=== PATIENT | male | born 1995 | race Hispanic/Latino ===

== ENCOUNTER 2016-12-05 23:38 | Emergency (ER) | payer SELFPAY ==
[~2016-12-05] VITALS: Ht 182.9 cm; Wt 91.0 kg
[~2016-12-05 23:38] MED LIST: DEPAKOTE ER500 MG PO; DEPAKOTE500 MG PO; DIVALPROEX SOD500 MG PO; HALDOL5 MG PO; LITHIUM CARBON300 M2 PO; QUETIAPINE FUM300 MG PO; SEROQUEL300 MG PO
[2016-12-06 00:01] VITALS: BP 144/94
== END 2016-12-06 00:45 | disposition left against medical advice (07) ==
LOC: EME 23:38
DX: R11.2 Nausea with vomiting, unspecified (principal); F19.10 Other psychoactive substance abuse, uncomplicated; F31.9 Bipolar disorder, unspecified; F17.200 Nicotine dependence, unspecified, uncomplicated
CPT/HCPCS: 99281; 99283

== ENCOUNTER 2017-01-01 17:09 | Emergency (ER) | payer SELFPAY ==
[~2017-01-01] VITALS: Ht 182.9 cm; Wt 94.0 kg
[2017-01-01] MEDS ORDERED: REGLAN10 MG PO (18:05)
[2017-01-01 18:16] VITALS: BP 128/83
== END 2017-01-01 18:21 | disposition home or self-care (01) ==
LOC: EME 17:09
DX: R11.2 Nausea with vomiting, unspecified (principal); F17.200 Nicotine dependence, unspecified, uncomplicated
CPT/HCPCS: 99281; 99284

== ENCOUNTER 2017-01-05 21:16 | Inpatient (IN) | payer SELFPAY ==
[~2017-01-05] VITALS: Ht 182.9 cm; Wt 92.4 kg
[~2017-01-05 21:16] MED LIST changes: +REGLAN10 MG PO
[2017-01-05 21:44] LABS: HEMATOCRIT 41.8 % (38.0-50.0); MCH 29.7 PG (29.0-34.0); MCHC 34.2 G/DL (30.0-36.0); MCV 86.9 FL (86-99); MEAN PLAT.VOLUME 10.5 uM^3 (9.0-12.4); NRBC (%) 0.2 /100 WBC (0-0); PLATELET COUNT 277 K/uL (156-360); RBC DIS.WIDTH-CV 12.5 % (11.8-14.6); RBC DIS.WIDTH-SD 39.9 % (39-53); RED BLOOD COUNT 4.81 M/uL (4.00-5.50); WHITE BLOOD COUNT 10.2 K/uL (4.1-10.2)
[2017-01-05 21:54] LABS: CHLORIDE 106 mEq/L (99-109)
[2017-01-05 21:55] LABS: SODIUM 139 mEq/L (136-147)
[2017-01-05 21:57] LABS: GLUCOSE 79 mg/dL (70-99)
[2017-01-05 21:58] LABS: ANION GAP 10 MEQ/L (2-14)
[2017-01-05 21:59] LABS: TOTAL BILIRUBIN 0.4 mg/dL (0.0-1.0)
[2017-01-05 22:00] LABS: SERUM ETHYL ALCOHOL < 10 mg/dL
[2017-01-05 22:01] LABS: ALKALINE PHOSPHATASE 74 IU/L (3-129); GFR ESTIMATE (CALCULATED) > 59 mL/min/
[2017-01-05 22:03] LABS: UREA NITROGEN (BUN) 14 mg/dL (9-23)
[2017-01-05 22:04] LABS: SALICYLATE < 5.0 MG/DL (15-30)
[2017-01-06 01:24] VITALS: BP 127/85
[2017-01-06 16:23] VITALS: BP 141/76
[2017-01-07 15:30] VITALS: BP 132/73
[2017-01-08 08:02] VITALS: BP 104/53
[2017-01-08 15:19] VITALS: BP 113/77
[2017-01-09 07:49] VITALS: BP 94/50
[2017-01-09 15:34] VITALS: BP 126/79
[2017-01-10 07:57] VITALS: BP 108/67
[2017-01-10] MEDS ORDERED: ABILIFY MAINTE400 MG (12:16)
[2017-01-10] MEDS ORDERED: DEPAKOTE500 MG PO ×2 (12:17→12:21)
[2017-01-10] MEDS ORDERED: QUETIAPINE FUM200 MG PO (12:21)
== END 2017-01-10 14:25 | disposition home or self-care (01) | DRG 885 ==
LOC: EME → EDBD 21:16 → EME 21:16 → 1WEST 22:15 → EDOF 22:15 → 1WEST 01-06 01:19
PROVIDERS: Emergency Medicine
DX: F31.60 Bipolar disorder, current episode mixed, unspecified (principal); R45.851 Suicidal ideations; Z91.19 Patient's noncompliance with other medical treatment and regimen; F12.10 Cannabis abuse, uncomplicated; F17.200 Nicotine dependence, unspecified, uncomplicated; R13.10 Dysphagia, unspecified; Z79.899 Other long term (current) drug therapy; F22 Delusional disorders
CPT/HCPCS: 80053; 80164; 80178; 81003; 85027; 90837; 97150 GO; 97166 GO; 99281; 99284; G0480

== ENCOUNTER 2017-02-12 00:09 | Inpatient (IN) | payer OTHER ==
[~2017-02-12] VITALS: Ht 182.9 cm; Wt 92.2 kg
[~2017-02-12 00:09] MED LIST changes: +ABILIFY MAINTE400 MG; +QUETIAPINE FUM200 MG PO
[2017-02-12 00:43] LABS: HEMATOCRIT 37.6 % (38.0-50.0); MCH 29.6 PG (29.0-34.0); MCHC 34.8 G/DL (30.0-36.0); MCV 85.1 FL (86-99); MEAN PLAT.VOLUME 11.1 uM^3 (9.0-12.4); PLATELET COUNT 203 K/uL (156-360); RBC DIS.WIDTH-CV 12.4 % (11.8-14.6); RBC DIS.WIDTH-SD 38.5 % (39-53); RED BLOOD COUNT 4.42 M/uL (4.00-5.50); WHITE BLOOD COUNT 9.4 K/uL (4.1-10.2)
[2017-02-12 00:55] LABS: CHLORIDE 104 mEq/L (99-109); POTASSIUM 3.6 mEq/L (3.7-5.4); SODIUM 139 mEq/L (136-147)
[2017-02-12 00:57] LABS: GLUCOSE 120 mg/dL (70-99)
[2017-02-12 00:58] LABS: ANION GAP 16 MEQ/L (2-14)
[2017-02-12 01:00] LABS: SERUM ETHYL ALCOHOL < 10 mg/dL
[2017-02-12 01:01] LABS: GFR ESTIMATE (CALCULATED) > 59 mL/min/
[2017-02-12 01:02] LABS: UREA NITROGEN (BUN) 14 mg/dL (9-23)
[2017-02-12 01:29] LABS: ADD MEDTOX COMMENT Y; AMPHETAMINE NEGATIVE (500 ng/mL); BARBITURATES NEGATIVE (200 ng/mL); BENZODIAZEPINES NEGATIVE (150 ng/mL); COCAINE NEGATIVE (150 ng/mL); INTERNAL CONTROLS VALID? YES; METHADONE NEGATIVE (200 ng/mL); METHAMPHETAMINE NEGATIVE (500 ng/mL); OPIATES (MORPHINE) NEGATIVE (100 ng/mL); OXYCODONE NEGATIVE (100 ng/mL); PHENCYCLIDINE NEGATIVE (25 ng/mL); PROPOXYPHENE NEGATIVE (300 ng/mL); THC CANNABINOIDS PRESUMPTIVE POSITIVE (50 ng/mL); TRICYCLIC ANTIDEPRESSANTS NEGATIVE (300 ng/mL)
[2017-02-12 10:15] VITALS: BP 114/75
[2017-02-12 16:36] VITALS: BP 118/65
[2017-02-13 08:01] VITALS: BP 108/56
[2017-02-13 16:02] VITALS: BP 114/60
[2017-02-14 07:46] VITALS: BP 118/71
[2017-02-14 15:28] VITALS: BP 112/58
[2017-02-15 07:52] VITALS: BP 96/51
== END 2017-02-15 12:11 | disposition home or self-care (01) | DRG 885 ==
LOC: EME 00:09 → 1WEST 03:37 → EDOF 03:37 → 1WEST 09:21
PROVIDERS: Emergency Medicine
DX: F31.4 Bipolar disorder, current episode depressed, severe, without psychotic features (principal); R45.851 Suicidal ideations; Z76.5 Malingerer [conscious simulation]; Z91.14 Patient's other noncompliance with medication regimen; F12.90 Cannabis use, unspecified, uncomplicated; F17.200 Nicotine dependence, unspecified, uncomplicated; Z59.0 Homelessness
CPT/HCPCS: 80048; 84999; 85027; 90839; 99281; 99285; G0480

== ENCOUNTER 2017-04-26 05:23 | Emergency (ER) | payer SELFPAY ==
[~2017-04-26] VITALS: Ht 182.9 cm; Wt 98.0 kg
[2017-04-26 05:25] VITALS: BP 135/93
== END 2017-04-26 05:45 | disposition left against medical advice (07) ==
LOC: EME 05:23
DX: R07.9 Chest pain, unspecified (principal); R51 Headache; Z53.21 Procedure and treatment not carried out due to patient leaving prior to being seen by health care provider
CPT/HCPCS: 93005

== ENCOUNTER 2017-04-26 22:35 | Emergency (ER) | payer SELFPAY ==
[~2017-04-26] VITALS: Ht 180.3 cm; Wt 98.1 kg
[2017-04-26 23:59] VITALS: BP 146/88
== END 2017-04-27 ==
LOC: EME 22:35
DX: T50.991A Poisoning by other drugs, medicaments and biological substances, accidental (unintentional), initial encounter (principal); R07.9 Chest pain, unspecified; S60.512A Abrasion of left hand, initial encounter; W25.XXXA Contact with sharp glass, initial encounter; Z02.89 Encounter for other administrative examinations; Z59.0 Homelessness
CPT/HCPCS: 73130; 93005; 99281; 99283

== ENCOUNTER 2017-04-27 15:58 | Inpatient (IN) | payer OTHER ==
[~2017-04-27] VITALS: Ht 177.8 cm; Wt 101.2 kg
[2017-04-27 17:30] LABS: BASOPHIL COUNT 0.1 K/uL (0-0.1); EOSINOPHIL (%) 5.8 % (0-5); EOSINOPHIL COUNT 0.5 K/uL (0-0.3); HEMATOCRIT 39.1 % (38.0-50.0); IMMATURE GRANULOCYTE (%) 0.4 % (0.0-0.7); INSTRUMENT ABS NEUTROPHIL CT 4.4 K/uL; LYMPHOCYTE COUNT 2.5 K/uL (1.0-2.8); MCH 29.4 PG (29.0-34.0); MCV 89.1 FL (86-99); MEAN PLAT.VOLUME 10.1 uM^3 (9.0-12.4); MONOCYTE (%) 9.7 % (3-12); MONOCYTE COUNT 0.8 K/uL (0-0.8); NEUTROPHIL (%) 53.5 % (45-76); NEUTROPHIL COUNT 4.4 K/uL (1.8-6.4); PLATELET COUNT 336 K/uL (156-360); RBC DIS.WIDTH-CV 12.9 % (11.8-14.6); RBC DIS.WIDTH-SD 42.5 % (39-53); RED BLOOD COUNT 4.39 M/uL (4.00-5.50); WHITE BLOOD COUNT 8.3 K/uL (4.1-10.2)
[2017-04-27 17:39] LABS: CHLORIDE 107 mEq/L (99-109); POTASSIUM 4.1 mEq/L (3.7-5.4); SODIUM 138 mEq/L (136-147)
[2017-04-27 17:41] LABS: GLUCOSE 94 mg/dL (70-99)
[2017-04-27 17:42] LABS: ANION GAP 13 MEQ/L (2-14)
[2017-04-27 17:43] LABS: TOTAL BILIRUBIN 0.3 mg/dL (0.0-1.0)
[2017-04-27 17:44] LABS: SERUM ETHYL ALCOHOL < 10 mg/dL
[2017-04-27 17:45] LABS: ALKALINE PHOSPHATASE 80 IU/L (3-129); GFR ESTIMATE (CALCULATED) > 59 mL/min/
[2017-04-27 17:46] LABS: UREA NITROGEN (BUN) 15 mg/dL (9-23)
[2017-04-27 17:51] LABS: AMPHETAMINE NEGATIVE (500 ng/mL); BARBITURATES NEGATIVE (200 ng/mL); BENZODIAZEPINES NEGATIVE (150 ng/mL); COCAINE NEGATIVE (150 ng/mL); INTERNAL CONTROLS VALID? YES; METHADONE NEGATIVE (200 ng/mL); METHAMPHETAMINE NEGATIVE (500 ng/mL); OPIATES (MORPHINE) NEGATIVE (100 ng/mL); OXYCODONE NEGATIVE (100 ng/mL); PHENCYCLIDINE NEGATIVE (25 ng/mL); PROPOXYPHENE NEGATIVE (300 ng/mL); THC CANNABINOIDS NEGATIVE (50 ng/mL); TRICYCLIC ANTIDEPRESSANTS NEGATIVE (300 ng/mL)
[2017-04-28 04:33] VITALS: BP 102/69
[2017-04-29 17:54] VITALS: BP 117/72
[2017-04-30 08:44] VITALS: BP 109/70
[2017-04-30 15:57] VITALS: BP 134/93
[2017-05-01 07:57] VITALS: BP 138/73
[2017-05-01 15:34] VITALS: BP 117/78
[2017-05-01 20:42] VITALS: BP 127/84
[2017-05-02 08:51] VITALS: BP 128/75
[2017-05-02 16:44] VITALS: BP 122/84
[2017-05-03 07:57] VITALS: BP 143/75
[2017-05-03 15:38] VITALS: BP 112/70
[2017-05-04 07:17] VITALS: BP 118/74
[2017-05-04 15:31] VITALS: BP 116/76
[2017-05-05 07:24] VITALS: BP 147/75
[2017-05-05 16:18] VITALS: BP 117/84
[2017-05-06 11:36] VITALS: BP 117/81
[2017-05-06 14:56] VITALS: BP 112/65
[2017-05-06 20:11] VITALS: BP 80/46
[2017-05-07 08:10] VITALS: BP 114/76
[2017-05-07 15:52] VITALS: BP 120/78
[2017-05-08 15:31] VITALS: BP 117/73
[2017-05-09 07:49] VITALS: BP 110/64
[2017-05-09 15:33] VITALS: BP 103/54
[2017-05-10 07:52] VITALS: BP 106/56
[2017-05-10 15:45] VITALS: BP 111/64
[2017-05-11 07:29] VITALS: BP 101/59
[2017-05-11] MEDS ORDERED: LITHIUM CARBON300 M2 PO (09:01)
[2017-05-11] MEDS ORDERED: INDERAL20 MG PO ×2 (09:01→09:12)
[2017-05-11] MEDS ORDERED: QUETIAPINE FUM400 MG PO (09:01)
[2017-05-11] MEDS ORDERED: BENZTROPINE MESY1 MG PO (09:01)
[2017-05-11] MEDS ORDERED: DIVALPROEX SOD500 MG PO (09:01)
== END 2017-05-11 12:38 | disposition home or self-care (01) | DRG 885 ==
LOC: EME → EDBD 15:58 → 1WEST 04-28 04:00 → EDOF 04-28 04:00 → 1WEST 04-28 04:00 → ENRESERV 04-28 04:02 → 1WEST 04-28 04:29
PROVIDERS: Emergency Medicine
DX: F31.2 Bipolar disorder, current episode manic severe with psychotic features (principal); R45.851 Suicidal ideations; F12.10 Cannabis abuse, uncomplicated; R45.86 Emotional lability; R45.87 Impulsiveness; R47.81 Slurred speech; Z78.1 Physical restraint status; Z91.14 Patient's other noncompliance with medication regimen; R53.83 Other fatigue; T43.595A Adverse effect of other antipsychotics and neuroleptics, initial encounter; T42.4X5A Adverse effect of benzodiazepines, initial encounter; H53.8 Other visual disturbances; F17.200 Nicotine dependence, unspecified, uncomplicated
CPT/HCPCS: 73130; 80053; 80164; 80178; 85025; 90837; 93005; 97165 GO; 99281; 99283; 99285; G0480; J1200; J1630; J2060

== ENCOUNTER 2017-09-15 12:24 | Emergency (ER) | payer SELFPAY ==
[~2017-09-15] VITALS: Ht 177.8 cm; Wt 83.2 kg
[~2017-09-15 12:24] MED LIST changes: +BENZTROPINE MESY1 MG PO; +INDERAL20 MG PO; +QUETIAPINE FUM400 MG PO
[2017-09-15 14:24] LABS: HEMATOCRIT 44.6 % (38.0-50.0); HEMOGLOBIN 15.1 G/DL (12.5-16.6); MCH 28.8 PG (29.0-34.0); MCHC 33.9 G/DL (30.0-36.0); PLATELET COUNT 258 K/uL (156-360); RBC DIS.WIDTH-CV 11.9 % (11.8-14.6); RBC DIS.WIDTH-SD 36.4 % (39-53); RED BLOOD COUNT 5.25 M/uL (4.00-5.50)
[2017-09-15 14:34] LABS: ALBUMIN 4.6 g/dL (3.2-4.8); CHLORIDE 104 mEq/L (99-109); POTASSIUM 3.7 mEq/L (3.7-5.4); SODIUM 139 mEq/L (136-147)
[2017-09-15 14:36] LABS: GLUCOSE 88 mg/dL (70-99); TOTAL PROTEIN 7.6 g/dL (6.4-8.3)
[2017-09-15 14:38] LABS: TOTAL BILIRUBIN 0.6 mg/dL (0.0-1.0)
[2017-09-15 14:39] LABS: ALKALINE PHOSPHATASE 111 IU/L (3-129); SERUM ETHYL ALCOHOL < 10 mg/dL
[2017-09-15 14:40] LABS: CREATININE 1.1 mg/dL (0.6-1.3); GFR ESTIMATE (CALCULATED) > 59 mL/min/ (58.99-99999)
[2017-09-15 14:41] LABS: AST (GOT) 23 IU/L (2-34); UREA NITROGEN (BUN) 7 mg/dL (9-23)
[2017-09-15 14:43] LABS: ALT (GPT) 57 IU/L (3-49)
[2017-09-15 15:37] LABS: APPEARANCE CLEAR ((CLEAR)); BILIRUBIN NEGATIVE; BLOOD NEGATIVE; COLOR YELLOW ((YELLOW)); GLUCOSE (STRIP) NEGATIVE; KETONES NEGATIVE; LEUKOCYTES NEGATIVE; NITRITE NEGATIVE; PROTEIN (STRIP) 30; SPECIFIC GRAVITY 1.026 (1.000-1.030); UCUL ADDED? NO
[2017-09-15 15:43] LABS: AMPHETAMINE NEGATIVE (500 ng/mL); BARBITURATES NEGATIVE (200 ng/mL); BENZODIAZEPINES NEGATIVE (150 ng/mL); BUPRENORPHINE NEGATIVE (10 ng/mL); COCAINE NEGATIVE (150 ng/mL); METHADONE NEGATIVE (200 ng/mL); METHAMPHETAMINE NEGATIVE (500 ng/mL); OPIATES (MORPHINE) NEGATIVE (100 ng/mL); OXYCODONE NEGATIVE (100 ng/mL); PHENCYCLIDINE NEGATIVE (25 ng/mL); PROPOXYPHENE NEGATIVE (300 ng/mL); THC CANNABINOIDS PRESUMPTIVE POSITIVE (50 ng/mL); TRICYCLIC ANTIDEPRESSANTS NEGATIVE (300 ng/mL)
[2017-09-15 16:04] VITALS: BP 143/88
== END 2017-09-15 16:05 | disposition home or self-care (01) ==
LOC: EME 12:24
PROVIDERS: Physician Assistant
DX: R11.2 Nausea with vomiting, unspecified (principal); F12.90 Cannabis use, unspecified, uncomplicated; F32.9 Major depressive disorder, single episode, unspecified; F31.9 Bipolar disorder, unspecified; F17.200 Nicotine dependence, unspecified, uncomplicated
CPT/HCPCS: 80053; 81003; 84999; 85027; 99281; 99285; G0480; J1885; J2405; J7030

== ENCOUNTER 2017-09-16 06:23 | Emergency (ER) | payer OTHER, BC ==
[~2017-09-16] VITALS: Ht 182.9 cm; Wt 92.7 kg
[2017-09-16 07:45] VITALS: BP 136/95
== END 2017-09-16 08:34 | disposition home or self-care (01) ==
LOC: EME 06:23
DX: S16.1XXA Strain of muscle, fascia and tendon at neck level, initial encounter (principal); V40.5XXA Car driver injured in collision with pedestrian or animal in traffic accident, initial encounter; Y92.410 Unspecified street and highway as the place of occurrence of the external cause
CPT/HCPCS: 99281; 99284; G0480; J1885; J7030

== ENCOUNTER 2017-09-16 21:29 | Emergency (ER) | payer OTHER, BC ==
[~2017-09-16] VITALS: Ht 182.9 cm; Wt 93.2 kg
[2017-09-16 23:27] VITALS: BP 132/98
== END 2017-09-16 23:27 | disposition home or self-care (01) ==
LOC: EME → EDBD 21:29 → EME 23:27
DX: R07.9 Chest pain, unspecified (principal); V89.2XXD Person injured in unspecified motor-vehicle accident, traffic, subsequent encounter; F32.9 Major depressive disorder, single episode, unspecified; F17.200 Nicotine dependence, unspecified, uncomplicated
CPT/HCPCS: 80048; 85025; 99281; 99283

== ENCOUNTER 2017-09-17 04:59 | Emergency (ER) | payer OTHER, BC ==
[~2017-09-17] VITALS: Ht 170.2 cm; Wt 75.0 kg
[2017-09-17 05:47] VITALS: BP 155/132
== END 2017-09-17 05:47 | disposition left against medical advice (07) ==
LOC: EME → EDBD 04:59 → EME 05:47
DX: F43.0 Acute stress reaction (principal); V49.9XXD Car occupant (driver) (passenger) injured in unspecified traffic accident, subsequent encounter
CPT/HCPCS: 99281; 99285

== ENCOUNTER 2017-09-17 12:16 | Inpatient (IN) | payer OTHER ==
[~2017-09-17] VITALS: Ht 182.9 cm; Wt 86.2 kg
[2017-09-17 13:23] LABS: HEMATOCRIT 41.4 % (38.0-50.0); HEMOGLOBIN 14.3 G/DL (12.5-16.6); MCH 28.9 PG (29.0-34.0); MCHC 34.5 G/DL (30.0-36.0); MCV 83.8 FL (86-99); PLATELET COUNT 230 K/uL (156-360); RBC DIS.WIDTH-CV 11.9 % (11.8-14.6); RBC DIS.WIDTH-SD 35.9 % (39-53); RED BLOOD COUNT 4.94 M/uL (4.00-5.50); WHITE BLOOD COUNT 8.1 K/uL (4.1-10.2)
[2017-09-17 13:42] LABS: CHLORIDE 105 MEQ/L (99-109); POTASSIUM 3.3 MEQ/L (3.7-5.4); SODIUM 138 MEQ/L (136-147)
[2017-09-17 13:49] LABS: ACETAMINOPHEN (TYLENOL) < 10 MCG/ML (10-30); CREATININE 0.7 MG/DL (0.6-1.3); GFR ESTIMATE (CALCULATED) > 59 mL/min/ (58.99-99999); GLUCOSE 99 mg/dL (70-99); SALICYLATE < 3.0 MG/DL (15-30); SERUM ETHYL ALCOHOL < 10 mg/dL; UREA NITROGEN (BUN) 8 mg/dL (9-23)
[2017-09-18 01:59] VITALS: BP 133/78
[2017-09-18 07:31] VITALS: BP 133/79
[2017-09-19 09:54] VITALS: BP 130/89
[2017-09-19 16:01] VITALS: BP 137/90
[2017-09-22 08:06] VITALS: BP 123/63
[2017-09-22 16:17] VITALS: BP 99/63
[2017-09-23 09:25] VITALS: BP 93/67
[2017-09-23 15:43] VITALS: BP 104/66
[2017-09-24 07:31] VITALS: BP 113/72
[2017-09-24 15:32] VITALS: BP 114/68
[2017-09-25 07:28] VITALS: BP 120/81
[2017-09-25 15:35] VITALS: BP 115/74
[2017-09-26 16:54] VITALS: BP 113/73
[2017-09-26 23:36] VITALS: BP 134/78
[2017-09-27 07:26] VITALS: BP 124/91
[2017-09-27] MEDS ORDERED: INDERAL20 MG PO (09:12)
[2017-09-27] MEDS ORDERED: LITHIUM CARBON450 MG PO (09:12)
[2017-09-27] MEDS ORDERED: SEROQUEL300 MG PO (09:12)
[2017-09-27] MEDS ORDERED: DOCUSATE SODIU100 MG PO (09:13)
[2017-09-27] MEDS ORDERED: BENZTROPINE MESY1 MG PO (09:13)
== END 2017-09-27 10:48 | disposition home or self-care (01) | DRG 885 ==
LOC: EME 12:16 → 1WEST 22:43 → EDOF 22:43 → 1WEST 22:43 → ENRESERV 09-18 00:22 → 1WEST 09-18 01:50
PROVIDERS: Emergency Medicine
DX: F31.2 Bipolar disorder, current episode manic severe with psychotic features (principal); R45.850 Homicidal ideations; R45.851 Suicidal ideations; F17.200 Nicotine dependence, unspecified, uncomplicated; Z91.14 Patient's other noncompliance with medication regimen
CPT/HCPCS: 80048; 80164; 80178; 85027; 90837; 97150 GO; 99281; 99285; G0480; J1200; J1630; J2060; J3230

== ENCOUNTER 2017-12-09 03:50 | Emergency (ER) | payer BC ==
[~2017-12-09] VITALS: Ht 182.9 cm; Wt 94.6 kg
[~2017-12-09 03:50] MED LIST changes: +DOCUSATE SODIU100 MG PO; +LITHIUM CARBON450 MG PO
[2017-12-09 04:04] VITALS: BP 123/83
== END 2017-12-09 04:28 | disposition left against medical advice (07) ==
LOC: EME 03:50
DX: Z76.0 Encounter for issue of repeat prescription (principal); Z53.21 Procedure and treatment not carried out due to patient leaving prior to being seen by health care provider